=== PATIENT | female | born 1955 | race Caucasian/White ===

== ENCOUNTER 2017-03-27 10:16 | Emergency (ER) | payer OTHER ==
--- NOTE | 2017-03-27 10:33 | EDPHY ---
H & P Stated Complaint: left leg pain for past week, started while sick Time Seen by Provider: 03/27/17 10:24 HPI/ROS: CHIEF COMPLAINT: Left leg pain HISTORY OF PRESENT ILLNESS: Patient is a 61-year-old female who comes to the emergency department complaining of cramps in her left calf. She states that seem to occur when she is sitting or standing. It does not hurt her to walk. They only last for a few seconds. She woke up few nights ago with a bad cramp that she was able to massage out. She is concerned that she has phlebitis because she has had that before. She is a smoker. No recent travel. No swelling. No erythema or fevers. She denies chest pain or shortness of breath. REVIEW OF SYSTEMS: Constitutional: denies: chills, fever, recent illness, recent injury EENTM: denies: blurred vision, double vision, nose congestion Respiratory: denies: cough, shortness of breath Cardiac: denies: chest pain, irregular heart rate, lightheadedness, palpitations Gastrointestinal/Abdominal: denies: abdominal pain, diarrhea, nausea, vomiting, blood streaked stools Genitourinary: denies: dysuria, frequency, hematuria, pain Musculoskeletal: See HPI Skin: denies: lesions, rash, jaundice, bruising Neurological: denies: headache, numbness, paresthesia, tingling, dizziness, weakness Hematologic/Lymphatic: denies: blood clots, easy bleeding, easy bruising Immunologic/allergic: denies: HIV/AIDS, transplant EXAM: GENERAL: Well-appearing, well-nourished and in no acute distress. HEAD: Atraumatic, normocephalic. EYES: Pupils equal round and reactive to light, extraocular movements intact, sclera anicteric, conjunctiva are normal. ENT: TMs normal, nares patent, oropharynx clear without exudates. Moist mucous membranes. NECK: Normal range of motion, supple without lymphadenopathy or JVD. LUNGS: Breath sounds clear to auscultation bilaterally and equal. No wheezes rales or rhonchi. HEART: Regular rate and rhythm without murmurs, rubs or gallops. ABDOMEN: Soft, nontender, normoactive bowel sounds. No guarding, no rebound. No masses appreciated. BACK: No CVA tenderness, no spinal tenderness, step-offs or deformities EXTREMITIES: Normal range of motion, no pitting or edema. No clubbing or cyanosis. Negative Homans NEUROLOGICAL: Cranial nerves II through XII grossly intact. Normal speech, normal gait. 5/5 strength, normal movement in all extremities, normal sensation PSYCH: Normal mood, normal affect. SKIN: Warm, dry, normal turgor, no visible rashes or lesions. Source: Patient Exam Limitations: No limitations - Personal History Current Tetanus/Diphtheria Vaccine: Yes Current Tetanus Diphtheria and Acellular Pertussis (TDAP): Yes Tetanus Vaccine Date: < 10 years - Medical/Surgical History Hx Asthma: Yes Hx Chronic Respiratory Disease: No Hx Diabetes: No Hx Cardiac Disease: No Hx Renal Disease: No Hx Cirrhosis: No Hx Alcoholism: No Hx HIV/AIDS: No Hx Splenectomy or Spleen Trauma: No Other PMH: gall bladder, asthma - Family History Significant Family History: No pertinent family hx - Social History Smoking Status: Current every day smoker Alcohol Use: Sober Drug Use: None Constitutional: Initial Vital Signs Temperature (C) 36.7 C 03/27/17 10:26 Heart Rate 98 03/27/17 10:26 Respiratory Rate 20 03/27/17 10:26 Blood Pressure 166/106 H 03/27/17 10:26 O2 Sat (%) 91 L 03/27/17 10:26 O2 Delivery Mode Room Air Allergies/Adverse Reactions: aspirin Allergy (Verified 03/27/17 10:25) Home Medications: Medication Instructions Recorded Loratadine 03/27/17 Medical Decision Making - Diagnostics Imaging Results: Imaging Impressions Extremity Venous Study 03/27/17 10:32 Impression: Negative. No deep venous thrombosis. Findings discussed with Emergency Department physician, Mingo Umana, at 11: 34 AM 03/27/2017. Imaging: Discussed imaging studies w/ call box wirer Radiologist ED Course/Re-evaluation: We discussed the ultrasound results. The patient is relieved. We discussed treatment for nonspecified leg pain. She feels that it is most likely a muscle cramp. She declines further workup or testing at this time. Differential Diagnosis: Partial list of the Differential diagnosis considered include but were not limited to; muscle strain, tendinitis, thrombophlebitis and although unlikely based on the history and physical exam, I also considered DVT, cellulitis, fracture, tumor. I discussed these differential diagnoses and the plan with the patient as well as the usual and expected course. The patient understands that the diagnosis is provisional and that in medicine we are not always correct and that further workup is often warranted. Usual and customary warnings were given. All of the patient's questions were answered. The patient was instructed to return to the emergency department should the symptoms at all worsen or return, otherwise to followup with the physician as we discussed. Departure - Departure Disposition: Home, Routine, Self-Care Clinical Impression: Calf pain Qualifiers: Laterality: left Qualified Code(s): M79.662 - Pain in left lower leg Condition: Fair Instructions: Leg Pain (ED) Referrals: Veronica Melchor MD [Primary Care Provider] - As per Instructions
[2017-03-27 11:48] VITALS: BP 153/108; PULSE 87; RESP 16; TEMP 97.5; O2SAT 92
== END 2017-03-27 11:40 | disposition home or self-care (01) ==
LOC: CED 10:16
DX: M79.662 Pain in left lower leg (principal); F17.200 Nicotine dependence, unspecified, uncomplicated; J45.909 Unspecified asthma, uncomplicated
CPT/HCPCS: 93971-PO